=== PATIENT | female | born 1965 | race American Indian/Alaskan Native ===

== ENCOUNTER 2017-04-05 08:06 | Emergency (ER) | payer OTHER ==
[2017-04-05 08:20] VITALS: TEMP 98.4; O2SAT 99; BMI 28.1
[2017-04-05] MEDS ORDERED: Sodium Chloride 0.9% 1,000 ML IV STA (08:26)
--- NOTE | 2017-04-05 08:44 | ED PDOC ---
Arrival/HPI - General Chief Complaint: GI Problem Time Seen by Provider: 04/05/17 08:26 Historian: Patient - History of Present Illness Narrative History of Present Illness (Text): 04/05/17 08:38 Concepción Zhou is a 51 year old female, whose past medical history includes hypertension, asthma, tubal ligation, and lumbar spine 4-5 fusion, presents to the emergency department complaining of 1 week duration of nausea and vomiting. Also states of generalized weakness. Patient has a history of irregular menses, LKMP was January 2017. Denies any abdominal pain. Denies fever, chills, headache, dizziness, chest pain, shortness of breath, vaginal bleeding/discharge, urinary symptoms, or any other complaints at this time. PMD: Dr. Pathak. Time/Duration: 1 week Symptom Onset: Gradual Symptom Course: Unchanged Severity Level: Mild Activities at Onset: Light Past Medical History - Provider Review Nursing Documentation Reviewed: Yes - Infectious Disease Hx of Infectious Diseases: None - Tetanus Immunization Tetanus Immunization: Unknown - Cardiac Hx Cardiac Disorders: Yes Hx Hypertension: Yes - Pulmonary Hx Respiratory Disorders: Yes Hx Asthma: Yes Hx Sleep Apnea: Yes - Neurological Hx Neurological Disorder: No - HEENT Hx HEENT Disorder: No - Renal Hx Renal Disorder: No - Endocrine/Metabolic Hx Endocrine Disorders: No - Hematological/Oncological Hx Blood Disorders: No - Integumentary Hx Dermatological Disorder: No - Musculoskeletal/Rheumatological Hx Musculoskeletal Disorders: Yes - Gastrointestinal Hx Gastrointestinal Disorders: Yes Hx Gastroesophageal Reflux: Yes - Genitourinary/Gynecological Hx Genitourinary Disorders: No - Psychiatric Hx Psychophysiologic Disorder: No Hx Substance Use: No - Past Surgical History Past Surgical History: No Previous - Surgical History Hx Orthopedic Surgery: Yes (Lumbar spine fusion) Hx Tubal Ligation: Yes - Anesthesia Hx Anesthesia: Yes Hx Anesthesia Reactions: No Hx Malignant Hyperthermia: No - Suicidal Assessment Feels Threatened In Home Enviroment: No Family/Social History - Physician Review Nursing Documentation Reviewed: Yes Family/Social History: No Known Family HX Smoking Status: Former Smoker Hx Alcohol Use: No Hx Substance Use: No Hx Substance Use Treatment: No Allergies/Home Meds Allergies/Adverse Reactions: Allergies EGG Allergy (Verified 04/05/17 08:20) ANAPHYLAXIS ANIMALS Allergy (Intermediate, Uncoded 04/05/17 08:20) SHORTNESS OF BREATH seaweed Allergy (Intermediate, Uncoded 04/05/17 08:20) URTICARIA CATS Allergy (Uncoded 04/05/17 08:20) HIVES DOGS Allergy (Uncoded 04/05/17 08:20) HIVES DUST Allergy (Uncoded 04/05/17 08:20) HIVES GRASS Allergy (Uncoded 04/05/17 08:20) HIVES SEASONAL Allergy (Uncoded 04/05/17 08:20) SNEEZING SEAWEED Allergy (Uncoded 04/05/17 08:20) HIVES TREES Allergy (Uncoded 04/05/17 08:20) HIVES Home Medications: Home Meds Medication Instructions Recorded Confirmed Albuterol HFA [Ventolin HFA 90 1 inh INH PRN PRN 04/05/17 04/05/17 mcg/actuation (8 g)] Spironolactone [Aldactone] 25 mg PO DAILY 04/05/17 04/05/17 Review of Systems - Physician Review All systems were reviewed & negative as marked: Yes - Review of Systems Constitutional: Fatigue. absent: Fevers Respiratory: absent: SOB, Cough, Sputum Cardiovascular: absent: Chest Pain, Palpitations Gastrointestinal: Nausea, Vomiting. absent: Abdominal Pain, Diarrhea Neurological: Normal. absent: Headache, Dizziness Psychiatric: Normal Physical Exam - Physical Exam Narrative Physical Exam (Text): 04/05/17 08:45 Constitutional: No acute distress. Head: Normocephalic. Atraumatic. Eyes: PERRL. ENT: Moist mucous membranes. Neck: Supple. Cardiovascular: Regular rate. Chest: No tenderness. Respiratory: Clear to auscultation bilaterally. GI: Soft. Nontender. Nondistended. Back: No CVA tenderness. Musculoskeletal: No tenderness or swelling of extremities. Skin: No rash. Neurologic: Alert, no focal deficit. Vital Signs Reviewed: Yes Vital Signs Temp Pulse Resp BP Pulse Ox 04/05/17 08:20 98.4 F 73 16 127/81 99 Temperature: Afebrile Blood Pressure: Normal Pulse: Regular Respiratory Rate: Normal Appearance: Positive for: Well-Appearing, Non-Toxic, Comfortable Pain Distress: None Mental Status: Positive for: Alert and Oriented X 3 Medical Decision Making ED Course and Treatment: 04/05/17 08:45 Impression: A 51 year old female who presents to emergency department complaining of nausea and vomiting for past week. Plan: -- Labs, lipase -- Zofran -- IV Fluids -- HCG -- Urinalysis -- Reassess and disposition Progress Notes: 04/05/17 09:42 Patient states she no longer feels nauseated. Labs unremarkable. Will discharge , f/u PMD, return to ER for worsening pain, intractible vomiting, or any other problem. - Lab Interpretations Lab Results: 04/05/17 08:26 04/05/17 08:26 Lab Results 04/05/17 09:04: Urine Color Yellow, Urine Appearance Clear, Urine pH 6.0, Ur Specific [place] 1.010, Urine Protein Negative, Urine Glucose (UA) Negative, Urine Ketones Negative, Urine Blood Trace-intact H, Urine Nitrate Negative, Urine Bilirubin Negative, Urine Urobilinogen 0.2, Ur Leukocyte Esterase Trace H , Urine RBC 0 - 2, Urine WBC 0 - 2, Ur Epithelial Cells 0 - 2, Urine Bacteria Few, Urine HCG, Qual Negative 04/05/17 08:26: Sodium 138, Potassium 4.0, Chloride 95, Carbon Dioxide 32, Anion Gap 15, BUN 18, Creatinine 0.9, Est GFR ( Amer) > 60, Est GFR (Non- Af Amer) > 60, Random Glucose 102, Calcium 9.8, Total Bilirubin 0.7, AST 48 H, ALT 41, Alkaline Phosphatase 57, Total Protein 8.7 H, Albumin 4.7, Globulin 4.0 , Albumin/Globulin Ratio 1.2, Lipase 85 04/05/17 08:26: WBC 5.4, RBC 3.95, Hgb 12.7, Hct 37.2, MCV 94.2, MCH 32.2, MCHC 34.1, RDW 12.7, Plt Count 225, MPV 10.9, Gran % 69.2 H, Lymph % (Auto) 23.3, Russell % (Auto) 6.3 H, Eos % (Auto) 0.6 L, Baso % (Auto) 0.6, Gran # 3.77, Lymph # 1.3, Russell # 0.3, Eos # 0.0, Baso # 0.03 - Medication Orders Current Medication Orders: Discontinued Medications Sodium Chloride (Sodium Chloride 0.9%) 1,000 mls @ 999 mls/hr IV .Q1H1M STA Stop: 04/05/17 09:26 Last Admin: 04/05/17 08:58 Dose: 999 mls/hr Ondansetron HCl (Zofran Inj) 8 mg IVP STAT STA Stop: 04/05/17 08:27 Last Admin: 04/05/17 08:59 Dose: 8 mg - Claytonibe Statement The provider has reviewed the documentation as recorded by the Zoe Howard Provider Attestation: All medical record entries made by the Zoe were at my direction and personally dictated by me. I have reviewed the chart and agree that the record accurately reflects my personal performance of the history, physical exam, medical decision making, and the department course for this patient. I have also personally directed, reviewed, and agree with the discharge instructions and disposition. Disposition/Present on Arrival - Present on Arrival Any Indicators Present on Arrival: No History of DVT/PE: No History of Uncontrolled Diabetes: No Urinary Catheter: No History of Decub. Ulcer: No History Surgical Site Infection Following: None - Disposition Have Diagnosis and Disposition been Completed?: Yes Diagnosis: Nausea & vomiting Disposition: HOME/ ROUTINE Disposition Time: 09:39 Patient Plan: Discharge Condition: STABLE Discharge Instructions (ExitCare): Acute Nausea and Vomiting (ED) Prescriptions: Ondansetron ODT [Zofran ODT] 4 mg PO Q8 #12 odt Referrals: Andrew Pathak MD [Primary Care Provider] - Follow up with primary
[2017-04-05 09:11] LABS: URINE BILIRUBIN NEGATIVE (NEGATIVE); URINE BLOOD TRACE-INTACT (NEGATIVE); URINE GLUCOSE (UA) NEGATIVE (NEGATIVE); URINE KETONE NEGATIVE (NEGATIVE); URINE LEUKOCYTE ESTERASE TRACE Leu/uL (NEGATIVE); URINE PROTEIN NEGATIVE mg/dL (<30 mg/dL); URINE UROBILINOGEN 0.2 E.U./dL (<1 E.U./dL)
[2017-04-05 09:13] LABS: URINE APPEARANCE CLEAR (CLEAR); URINE COLOR YELLOW (YELLOW)
[2017-04-05 09:24] LABS: URINE BACTERIA FEW (NEG); URINE EPITHELIAL CELLS 0 - 2 /hpf (0-5); URINE RBC 0 - 2 /hpf (0-2); URINE WBC 0 - 2 /hpf (0-6)
[2017-04-05 09:24] LABS: ADD MANUAL DIFF? NO; BASO # 0.03 K/mm3 (0.0-2.0); BASO % 0.6 % (0.0-3.0); EOS % 0.6 % (1.5-5.0); GRAN # 3.77 (1.4-6.5); GRAN % 69.2 % (50.0-68.0); HEMATOCRIT 37.2 % (36.0-48.0); LYMPH # 1.3 (1.2-3.4); LYMPH % 23.3 % (22.0-35.0); MEAN CELL VOLUME 94.2 fL (80.0-105.0); MEAN CORPUSCULAR HEMOGLOBIN 32.2 pg (25.0-35.0); MEAN CORPUSCULAR HGB CONC 34.1 g/dl (31.0-37.0); MEAN PLATELET VOLUME 10.9 fl (7.0-11.0); MONO # 0.3 (0.1-0.6); MONO % 6.3 % (1.0-6.0); PLATELET COUNT 225 10^3/uL (120.0-450.0); RED CELL DISTRIBUTION WIDTH 12.7 % (11.5-14.5); WHITE BLOOD COUNT 5.4 10^3/ul (4.5-11.0)
[2017-04-05 09:34] LABS: ALB/GLOB RATIO 1.2 (1.1-1.8); ALKALINE PHOSPHATASE 57 U/L (38-133); BILIRUBIN,TOTAL 0.7 mg/dL (0.2-1.3); BLOOD UREA NITROGEN 18 mg/dL (7-21); CARBON DIOXIDE 32 mmol/L (21-33); GFR AFRICAN-AMERICAN > 60; LIPASE 85 U/L (23-300)
[2017-04-05 09:52] VITALS: BP 122/85; PULSE 78; RESP 17
[2017-04-05 09:53] LABS: ALT/SGPT 42 U/L (7-56); AST/SGOT 47 U/L (15-39); CALCIUM 9.9 mg/dL (8.4-10.5); CHLORIDE 94 mmol/L (95-110); GLUCOSE,RANDOM 101 mg/dL (70-110); SODIUM 137 mmol/L (132-148); TOTAL PROTEIN 8.5 g/dL (5.8-8.3)
== END 2017-04-05 09:52 | disposition home or self-care (01) ==
LOC: ED 08:06
DX: R11.2 Nausea with vomiting, unspecified (principal)
CPT/HCPCS: 80053; 81001; 83690; 84703; 85025; 87086; 96361; 96374; 99283; J2405; J7040